=== PATIENT | female | born 1970 | race Caucasian/White ===

== ENCOUNTER 2016-11-22 02:28 | Emergency (ER) | payer OTHER ==
[~2016-11-22] VITALS: Ht 167.6 cm; Wt 119.7 kg
[~2016-11-22 02:28] MED LIST: GENECHW PO; IRON PO
[2016-11-22 02:36] VITALS: BP 159/96; PULSE 75; RESP 18; TEMP 98.6; O2SAT 96
[2016-11-22] MEDS ORDERED: AMOX875T PO (02:46)
--- NOTE | 2016-11-22 03:15 | PD ---
HPI Chief Complaint: Oral / Dental Pain or Problem Time Seen by Provider: 03:09 Travel History International Travel<30 days: No Contact w/Intl Traveler<30days: No Traveled to known affect area: No History of Present Illness HPI The patient is a 46-year-old female that complains of right sided facial swelling from a broken tooth one week ago. She is already put on amoxicillin 875 mg and she has taken 3 doses of this already. She complains of increasing and the facial swelling and pain. She denies any fever. She denies any history of heart murmur or diabetes. She has already made an appointment with a dentist this coming Saturday. She will be given another prescription to take, Cleocin 300 mg 4 times daily for 10 days. PFSH Past Medical History Arthritis: No Asthma: No Autoimmune Disease: No Blood Disorders: No Heart Rhythm Problems: No Cancer: No Cardiovascular Problems: No High Cholesterol: No Chemotherapy: No Chest Pain: No Congestive Heart Failure: No COPD: No Cerebrovascular Accident: No Diabetes: No Diminished Hearing: No Endocrine: No Gastrointestinal Disorders: No GERD: No Glaucoma: No Genitourinary: No Headaches: No Hepatitis: No Hiatal Hernia: No Hypertension: No Kidney Stones: No Medical other: Yes (ANEMIA) Musculoskeletal: No Neurologic: No Psychiatric: No Respiratory: Yes (PNEUMONIA 2005) Immunizations Current: No Myocardial Infarction: No Radiation Therapy: No Renal Failure: No Seizures: No Sleep Apnea: No Thyroid Disease: No Ulcer: No Tetanus Vaccination: < 5 Years Influenza Vaccination: Yes ?: Not LMP: ABLATION : 3 Para: 3 Past Surgical History Pacemaker: No Other Surgery: Yes Social History Alcohol Use: No Tobacco Use: No Substance Use: No Allergies-Medications (Allergen,Severity, Reaction): Coded Allergies: No Known Allergies (Unverified , 11/22/16) Reported Meds & Prescriptions Reported Meds & Active Scripts Active Percocet (Oxycodone-Acetaminophen) 5-325 mg Tab 1 Tab PO Q4H PRN Percocet (Oxycodone-Acetaminophen) 5-325 mg Tab 1-2 Tab PO Q4H PRN Reported Amoxicillin 875 Mg Tab 875 Mg PO BID Review of Systems Except as stated in HPI: all other systems reviewed are Neg Physical Exam Narrative GENERAL: Well-nourished, well-developed patient in moderate apparent distress with her right facial swelling. Her vital signs show blood pressure 159/96 but are otherwise normal. SKIN: Warm and dry. No skin rashes seen. HEAD: Normocephalic. EYES: No scleral icterus. No injection or drainage. NECK: Supple, trachea midline. No JVD or lymphadenopathy. CARDIOVASCULAR: Regular rate and rhythm without murmurs, gallops, or rubs. RESPIRATORY: Breath sounds equal bilaterally. No accessory muscle use. GASTROINTESTINAL: Abdomen soft, non-tender, nondistended. MUSCULOSKELETAL: No cyanosis, or edema. BACK: Nontender without obvious deformity. No CVA tenderness. DENTAL: No loose or chipped teeth. No malocclusion. There is a broken down tooth, tooth #31 but there is no associated drainable abscess either on the buccal side or around the tooth. She has pronounced swelling of the right lower cheek but no fluctuance is noted, no drainable abscess is noted within the cheek. There is no evidence of swelling below the mandible. Data Data Last Documented VS Vital Signs Date Time Temp Pulse Resp B/P Pulse Ox O2 Delivery O2 Flow Rate FiO2 11/22/16 02:36 98.6 75 18 159/96 96 Orders Ceftriaxone Inj (Rocephin Inj) (11/22/16 03:30) Oxycodone-Acetamin 7.5-325 Mg (Percocet (11/22/16 04:15) MDM Medical Decision Making Medical Screen Exam Complete: Yes Emergency Medical Condition: Yes Medical Record Reviewed: Yes Differential Diagnosis Drainable dental abscess, dental infection, buccal abscess, Donnell's angina highly unlikely Narrative Course The patient does not have any drainable abscesses. Additional Instructions: As we discussed, if the swelling persists, take the Cleocin 4 times daily for 10 days. Follow-up Saturday as scheduled with your dentist. Med/Other Pt SpecificInfo: Prescription(s) given Scripts Clindamycin (Cleocin)300 Mg Agr757 Mg PO Q6H #40 CAP Ref 0 Prov:Aniket Bermudez MD 11/22/16 Oxycodone-Acetaminophen (Percocet)5-325 mg Tab1 Tab PO Q4H PRN (PAIN) #30 TAB Ref 0 Prov:Aniket Bermudez MD 11/22/16 Oxycodone-Acetaminophen (Percocet)5-325 mg Tab1-2 Tab PO Q4H PRN (PAIN) #30 TAB Ref 0 Prov:Aniket Bermudez MD 11/22/16 Disposition: 01 DISCHARGE HOME Condition: Stable Aniket Bermudez MD Nov 22, 2016 03:15
[2016-11-22] MEDS ORDERED: cefTRIAXone INJ 1,000 MG in SODIUM CHLORIDE 0.9% INJ 100 ML IV ONE (03:30)
[2016-11-22] MEDS ORDERED: PERC5TAB12 PO ×2 (03:47→03:59)
[2016-11-22] MEDS ORDERED: CLEO300C2 PO (04:14)
[2016-11-22] MEDS ORDERED: oxyCODONE/ACETAMINOPHEN 7.5 MG/325 MG TAB PO ONE (04:15)
== END 2016-11-22 04:26 | disposition home or self-care (01) ==
LOC: PHED 02:28
DX: K04.7 Periapical abscess without sinus (principal); S02.5XXA Fracture of tooth (traumatic), initial encounter for closed fracture; X58.XXXA Exposure to other specified factors, initial encounter; Y93.9 Activity, unspecified; Y99.9 Unspecified external cause status
CPT/HCPCS: 96365; 99283; J0696